=== PATIENT | male | born 1960 | race Caucasian/White ===

== ENCOUNTER 2023-10-01 18:40 | Emergency (ER) | payer OTHER ==
[~2023-10-01] VITALS: Ht 177.8 cm; Wt 88.5 kg
[2023-10-02] VITALS: O2SAT 97
== END 2023-10-02 10:35 | disposition home or self-care (01) ==
LOC: ER 18:43
DX: H53.10 Unspecified subjective visual disturbances (principal); E11.65 Type 2 diabetes mellitus with hyperglycemia; K21.9 Gastro-esophageal reflux disease without esophagitis; F41.9 Anxiety disorder, unspecified; F17.200 Nicotine dependence, unspecified, uncomplicated; Z20.822 Contact with and (suspected) exposure to COVID-19; Z88.1 Allergy status to other antibiotic agents
CPT/HCPCS: A4606; A4663